=== PATIENT | male | born 2000 | race Hispanic/Latino ===

== ENCOUNTER 2018-01-10 00:18 | Emergency (ER) | payer BC ==
[2018-01-10] MEDS ORDERED: MORPHINE 4 MG/ML SYR ONE (00:50)
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
== END 2018-01-10 04:58 | disposition home or self-care (01) ==
LOC: ER 00:18
DX: M25.562 Pain in left knee (principal); M25.561 Pain in right knee; V49.40XA Driver injured in collision with unspecified motor vehicles in traffic accident, initial encounter; F41.9 Anxiety disorder, unspecified; F32.9 Major depressive disorder, single episode, unspecified
CPT/HCPCS: 70450; 71250; 72125; 96374; 99285

== ENCOUNTER 2020-02-29 16:40 | Emergency (ER) | payer BC, OTHER ==
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
[2020-02-29 19:38] LABS: Basophils % 0.6 % (0-1.3); Hematocrit 44.8 % (39.6-49.0); Lymphocytes % 36.7 % (15.3-44.8); MPV 9.4 fL (7.6-11.3); RBC Red Blood Cell Count 5.01 M/uL (4.33-5.43)
[2020-02-29 19:57] LABS: BUN Blood Urea Nitrogen 12 mg/dL (7-18); Bicarbonate 30 mmol/L (21-32); Glucose Level 85 mg/dL (74-106); Potassium 3.6 mmol/L (3.5-5.1); Sodium Level 139 mmol/L (136-145)
[2020-02-29 20:06] LABS: Urine Blood NEGATIVE (NEG); Urine Glucose NEGATIVE (NEG); Urine Protein NEGATIVE (NEG); Urine Specific Gravity >1.030 (1.005-1.030)
[2020-02-29 21:09] LABS: Urine Bacteria 20-50 /HPF (NONE SEEN); Urine Mucus 3+ /HPF (NONE SEEN); Urine RBC <5 /HPF (NONE SEEN)
--- NOTE | 2020-02-29 21:21 | EDPHYS ---
Physician Documentation [facility] Name: Hari Llanos Age: 19 yrs Sex: Male : 2000 Arrival Date: 02/29/2020 Time: 16:42 Bed 20 Private MD: ED Physician Tone Crowell HPI: 02/28 23:39 This 19 yrs old Male presents to ER via Ambulatory with complaints of Kidney kb Problem, Pain. 23:39 The patient presents with flank pain, of the left flank and right flank, urinary kb symptoms, hematuria. Onset: The symptoms/episode began/occurred yesterday. Modifying factors: The symptoms are alleviated by nothing, the symptoms are aggravated by nothing. Associated signs and symptoms: Pertinent positives: abdominal pain, Pertinent negatives: constipation, diarrhea, dysuria, fever, hematuria, nausea, vomiting. Severity of symptoms: At their worst the symptoms were mild, in the emergency department the symptoms are unchanged. The patient has not experienced similar symptoms in the past. The patient has not recently seen a physician. Historical: - Allergies: 17:14 No Known Allergies; aa5 - PMHx: 17:14 Anxiety; Depression; aa5 - Immunization history:: Adult Immunizations up to date. - Social history:: Smoking status: unknown. ROS: 23:37 Constitutional: Negative for fever, chills, and weight loss, Cardiovascular: Negative kb for chest pain, palpitations, and edema, Respiratory: Negative for shortness of breath, cough, wheezing, and pleuritic chest pain, MS/Extremity: Negative for injury and deformity, Skin: Negative for injury, rash, and discoloration, Neuro: Negative for headache, weakness, numbness, tingling, and seizure. 23:37 Abdomen/GI: Positive for abdominal pain, of the suprapubic area. 23:37 : Positive for flank pain, hematuria. Exam: 23:38 Constitutional: This is a well developed, well nourished patient who is awake, alert, kb and in no acute distress. Head/Face: Normocephalic, atraumatic. Chest/axilla: Normal chest wall appearance and motion. Nontender with no deformity. No lesions are appreciated. Cardiovascular: Regular rate and rhythm with a normal S1 and S2. No gallops, murmurs, or rubs. Normal PMI, no JVD. No pulse deficits. Respiratory: Lungs have equal breath sounds bilaterally, clear to auscultation and percussion. No rales, rhonchi or wheezes noted. No increased work of breathing, no retractions or nasal flaring. Abdomen/GI: Soft, non-tender, with normal bowel sounds. No distension or tympany. No guarding or rebound. No evidence of tenderness throughout. Back: No spinal tenderness. No costovertebral tenderness. Full range of motion. Skin: Warm, dry with normal turgor. Normal color with no rashes, no lesions, and no evidence of cellulitis. MS/ Extremity: Pulses equal, no cyanosis. Neurovascular intact. Full, normal range of motion. Neuro: Awake and alert, GCS 15, oriented to person, place, time, and situation. Cranial nerves II-XII grossly intact. Motor strength 5/5 in all extremities. Sensory grossly intact. Cerebellar exam normal. Normal gait. Vital Signs: 17:14 BP 129 / 73; Pulse 76; Resp 16 S; Temp 98.3(O); Pulse Ox 98% on R/A; Weight 90.72 kg aa5 (R); Height 5 ft. 7 in. (170.18 cm) (R); Pain 4/10; 19:20 BP 120 / 78; Pulse 67; Resp 16; Pulse Ox 100% on R/A; vg1 20:00 BP 118 / 70; Pulse 70; Resp 16; Pulse Ox 100% on R/A; vg1 21:00 BP 118 / 64; Pulse 68; Resp 14; Pulse Ox 100% on R/A; vg1 17:14 Body Mass Index 31.32 (90.72 kg, 170.18 cm) aa5 MDM: 18:33 Patient medically screened. kb 21:19 Data reviewed: vital signs, nurses notes. Data interpreted: Pulse oximetry: on room air kb is 100 %. Interpretation: normal. Counseling: I had a detailed discussion with the patient and/or guardian regarding: the historical points, exam findings, and any diagnostic results supporting the discharge/admit diagnosis, lab results, radiology results, the need for outpatient follow up, a family practitioner, to return to the emergency department if symptoms worsen or persist or if there are any questions or concerns that arise at home. 02/28 18:47 Order name: Basic Metabolic Panel kb 02/28 18:47 Order name: CBC with Diff kb 02/28 18:48 Order name: Basic Metabolic Panel; Complete Time: 20:11 EDMS 02/28 18:48 Order name: CBC with Automated Diff; Complete Time: 19:47 EDMS 02/28 19:54 Order name: Urine Dipstick--Ancillary (enter results); Complete Time: 20:11 tt3 02/28 20:12 Order name: Urine Microscopic Only; Complete Time: 21:18 kb 02/28 17:26 Order name: CT Stone Protocol; Complete Time: 18:07 kb 02/28 17:26 Order name: Urine Dipstick-Ancillary (obtain specimen); Complete Time: 19:55 kb 02/28 18:47 Order name: IV Saline Lock; Complete Time: 19:55 kb 02/28 18:47 Order name: Labs collected and sent; Complete Time: 19:55 kb 02/28 21:11 Order name: Urine Culture EDMS Administered Medications: 21:46 Drug: Cipro 500 mg Route: PO; vg1 21:46 Follow up: Response: Medication administered at discharge. vg1 Disposition: 03/01 07:26 Co-signature as Attending Physician, Tone Crowell MD I agree with the assessment and kdr plan of care. Disposition: 02/29/20 21:21 Discharged to Home. Impression: Colitis, Urinary tract infection, site not specified. - Condition is Stable. - Discharge Instructions: Urinary Tract Infection, Adult, [id number], Colitis. - Prescriptions for Cipro 500 mg Oral Tablet - take 1 tablet by ORAL route every 12 hours for 10 days; 20 tablet. - Medication Reconciliation Form, Thank You Letter, Antibiotic Education, Prescription Opioid Use form. - Follow up: Emergency Department; When: As needed; Reason: Worsening of condition. Follow up: Private Physician; When: 2 - 3 days; Reason: Recheck today's complaints, Continuance of care, Re-evaluation by your physician. Signatures: Dispatcher [employer] EDDE Emily Minaya, Tone Whittaker MD MD kdr Calderon, Audri, RN RN sarah5 Maryse Elizabeth RN RN vg1 Corrections: (The following items were deleted from the chart) 02/28 21:47 21:21 02/29/2020 21:21 Discharged to Home. Impression: Colitis; Urinary tract vg1 infection, site not specified. Condition is Stable. Forms are Medication Reconciliation Form, Thank You Letter, Antibiotic Education, Prescription Opioid Use. Follow up: Emergency Department; When: As needed; Reason: Worsening of condition. Follow up: Private Physician; When: 2 - 3 days; Reason: Recheck today's complaints, Continuance of care, Re-evaluation by your physician. kb 23:41 23:39 The patient presents with urinary symptoms, hematuria, kb kb 23:41 23:39 Associated signs and symptoms: Pertinent positives: abdominal pain, Pertinent kb negatives: constipation, diarrhea, dysuria, fever, hematuria, nausea, vomiting, kb 23:42 23:37 Constitutional: Negative for fever, chills, and weight loss, Cardiovascular: kb Negative for chest pain, palpitations, and edema, Respiratory: Negative for shortness of breath, cough, wheezing, and pleuritic chest pain, MS/Extremity: Negative for injury and deformity, Skin: Negative for injury, rash, and discoloration, Neuro: Negative for headache, weakness, numbness, tingling, and seizure, kb 23:42 23:37 : Positive for hematuria, kb kb
--- NOTE | 2020-02-29 21:21 | ER ---
Nurse's Notes [facility] Name: Hari Llanos Age: 19 yrs Sex: Male : 2000 Arrival Date: 02/29/2020 Time: 16:42 Bed 20 Private MD: Diagnosis: Colitis;Urinary tract infection, site not specified Presentation: 02/28 17:12 Chief complaint: Patient states: low back and lower abd pain that began 2 weeks ago. Pt aa5 reports pain was sharp at first and now after taking AZO it's been dull ache. Coronavirus screen: Client denies travel out of the [place] in the last 14 days. At this time, the client does not indicate any symptoms associated with coronavirus-19. Ebola Screen: Patient negative for fever greater than or equal to 101.5 degrees Fahrenheit, and additional compatible Ebola Virus Disease symptoms. Initial Sepsis Screen: Does the patient meet any 2 criteria? No. Patient's initial sepsis screen is negative. Does the patient have a suspected source of infection? No. Patient's initial sepsis screen is negative. Risk Assessment: Do you want to hurt yourself or someone else? Patient reports no desire to harm self or others. Onset of symptoms was January 2020. 17:12 Method Of Arrival: Ambulatory aa5 17:12 Acuity: МАРИНА 3 aa5 Historical: - Allergies: 17:14 No Known Allergies; aa5 - PMHx: 17:14 Anxiety; Depression; aa5 - Immunization history:: Adult Immunizations up to date. - Social history:: Smoking status: unknown. Screenin:10 Abuse screen: Denies threats or abuse. Nutritional screening: No deficits noted. vg1 Tuberculosis screening: No symptoms or risk factors identified. Fall Risk No fall in past 12 months (0 pts). No secondary diagnosis (0 pts). IV access (20 points). Ambulatory Aid- None/Bed Rest/Nurse Assist (0 pts). Gait- Normal/Bed Rest/Wheelchair (0 pts) Mental Status- Oriented to own ability (0 pts). Total Aguilar Fall Scale indicates No Risk (0-24 pts). Assessment: 19:10 General: Appears in no apparent distress. comfortable, Behavior is calm, cooperative. vg1 Pain: Complains of pain in lower back pain and lower ABD that radiates to the groin and down MELI legs Pain currently is 4 out of 10 on a pain scale. Neuro: Level of Consciousness is awake, alert, obeys commands, Oriented to person, place, time, situation. 19:10 Pain: Quality of pain is described as sharp. Cardiovascular: Patient's skin is warm and vg1 dry. Respiratory: Airway is patent Respiratory effort is even, unlabored, Respiratory pattern is regular, symmetrical. GI: No signs and/or symptoms were reported involving the gastrointestinal system. : Reports burning with urination. EENT: No signs and/or symptoms were reported regarding the EENT system. Derm: Skin is intact, is healthy with good turgor. Musculoskeletal: Range of motion: intact in all extremities. 20:44 Reassessment: Patient appears in no apparent distress at this time. No changes from vg1 previously documented assessment. Patient is alert, oriented x 3, equal unlabored respirations, skin warm/dry/pink. Vital Signs: 17:14 BP 129 / 73; Pulse 76; Resp 16 S; Temp 98.3(O); Pulse Ox 98% on R/A; Weight 90.72 kg aa5 (R); Height 5 ft. 7 in. (170.18 cm) (R); Pain 4/10; 19:20 BP 120 / 78; Pulse 67; Resp 16; Pulse Ox 100% on R/A; vg1 20:00 BP 118 / 70; Pulse 70; Resp 16; Pulse Ox 100% on R/A; vg1 21:00 BP 118 / 64; Pulse 68; Resp 14; Pulse Ox 100% on R/A; vg1 17:14 Body Mass Index 31.32 (90.72 kg, 170.18 cm) aa5 ED Course: 16:42 Patient arrived in ED. ag5 17:12 Arm band placed on. aa5 17:13 Triage completed. aa5 17:25 [facility] kb 17:25 Tone Crowell MD is Attending Physician. kb 17:47 CT Stone Protocol In Process Unspecified. EDMS 19:08 Maryse Elizabeth, RN is Primary Nurse. vg1 19:10 Patient has correct armband on for positive identification. Bed in low position. Call vg1 light in reach. Adult w/ patient. 19:15 Inserted saline lock: 20 gauge in right antecubital area, using aseptic technique. vg1 Blood collected. 19:15 Initial lab(s) drawn, by me, sent to lab. vg1 19:55 Basic Metabolic Panel Sent. vg1 19:55 CBC with Diff Sent. vg1 21:40 No provider procedures requiring assistance completed. IV discontinued, intact, vg1 bleeding controlled, No redness/swelling at site. Pressure dressing applied. Administered Medications: 21:46 Drug: Cipro 500 mg Route: PO; vg1 21:46 Follow up: Response: Medication administered at discharge. vg1 Outcome: 21:21 Discharge ordered by . kb 21:40 Discharged to home ambulatory, with family. vg1 21:40 Condition: stable 21:40 Discharge instructions given to patient, Instructed on discharge instructions, follow up and referral plans. medication usage, Demonstrated understanding of instructions, follow-up care, medications, Prescriptions given X 1. 21:47 Patient left the ED. vg1 Signatures: Dispatcher [employer] EDMS Emily Minaya, TIANA-Stan CASE ASSEMBLER-Debbie Ng, RN RN aa5 Nimisha Live 5 Maryse Elizabeth, RN RN vg1 Corrections: (The following items were deleted from the chart) 17:15 17:14 Pulse Ox 98% RA; Temp 98.3F Oral; 90.72 kg Reported; Height 5 ft. 7 in. Reported; aa5 BMI: 31.3; aa5 17:15 17:14 Pulse 76bpm; Resp 16bpm; Spontaneous; Pulse Ox 98% RA; Temp 98.3F Oral; 90.72 kg aa5 Reported; Height 5 ft. 7 in. Reported; BMI: 31.3; aa5 03/01 01:41 02/28 21:40 Discharge instructions given to patient, Instructed on discharge vg1 instructions, follow up and referral plans. medication usage, Demonstrated understanding of instructions, follow-up care, medications, vg1
[2020-02-29] MEDS ORDERED: CIPROFLOXACIN HCL 500 MG TAB ONE (21:53)
[2020-02-29 21:55] VITALS: O2SAT 100
[2020-02-29 21:57] VITALS: TEMP 98.3
[2020-02-29 21:59] VITALS: BP 118/64
== END 2020-02-29 21:47 | disposition home or self-care (01) ==
LOC: ER 16:40
DX: K52.9 Noninfective gastroenteritis and colitis, unspecified (principal); N39.0 Urinary tract infection, site not specified; R31.9 Hematuria, unspecified
CPT/HCPCS: 36415; 74176; 76377; 80048; 81003; 81015; 85025; 87086; 87088; 99284